=== PATIENT | female | born 1995 | race American Indian/Alaskan Native ===

== ENCOUNTER 2020-02-21 13:00 | Emergency (ER) | payer BC ==
--- NOTE | 2020-02-21 13:45 | EDM.PDOC ---
ED HPI GENERAL MEDICAL PROBLEM - General Chief Complaint: ENT Problem Stated Complaint: cough runny nose sore throat Time Seen by Provider: 02/21/20 13:40 Source of Information: Reports: Patient History Limitations: Reports: No Limitations - History of Present Illness INITIAL COMMENTS - FREE TEXT/NARRATIVE: Patient is here to get a covid swab and chest xray. She started getting sick on 02/11, 9 days ago, with fevers, cough, and loss of taste and smell. She has been getting better since that time. However, her family would like her to have a chest xray as someone they know went home from the ER then got worse and had to come back a few days later. She does not currently have shortness of breath or cough. Her taste and smell is back. Onset Date: 02/12/20 - Related Data Allergies Allergy/AdvReac Type Severity Reaction Status Date / Time No Known Allergies Allergy Verified 02/21/20 13:18 Home Meds: Home Meds . [No Known Home Meds] 02/21/20 [History] Past Medical History - Past Health History Medical/Surgical History: Denies Medical/Surgical History Social & Family History - Tobacco Use Tobacco Use Status *Q: Never Tobacco User - Recreational Drug Use Recreational Drug Use: No ED ROS GENERAL - Review of Systems Review Of Systems: Comprehensive ROS is negative, except as noted in HPI. ED EXAM, GENERAL - Physical Exam Exam: See Below Exam Limited By: No Limitations General Appearance: Alert, WD/WN, No Apparent Distress Eye Exam: Bilateral Eye: Normal Inspection Throat/Mouth: Normal Voice, No Airway Compromise Head: Atraumatic, Normocephalic Respiratory/Chest: No Respiratory Distress, Lungs Clear, Normal Breath Sounds, No Accessory Muscle Use, Chest Non-Tender Cardiovascular: Normal Peripheral Pulses, Regular Rate, Rhythm, No Murmur GI/Abdominal: Soft, Non-Tender Neurological: Alert, Oriented, Normal Cognition, Normal Gait Psychiatric: Normal Affect, Normal Mood Skin Exam: Warm, Dry, Intact, Normal Color, No Rash Lymphatic: No Adenopathy Course - Vital Signs Last Recorded V/S: Last Vital Signs Temp 97.9 F 02/21/20 13:13 Pulse 72 02/21/20 13:13 Resp 16 02/21/20 13:13 BP 119/62 02/21/20 13:13 Pulse Ox 100 02/21/20 13:13 - Orders/Labs/Meds Orders: Active Orders 24 hr Category Date Time Status CORONAVIRUS COVID-19 PCR PHL Stat Lab 02/21/20 13:40 Ordered - Re-Assessments/Exams Free Text/Narrative Re-Assessment/Exam: Explained to pt that she does not have any clinical indication for a cxr today. Reassured her that her symptoms were improving and she is to go home and quarantine while awaiting her PHL COVID swab to be resulted in a few days. 02/21/20 13:47 Departure - Departure Time of Disposition: 13:45 Disposition: Home, Self-Care 01 Condition: Good Clinical Impression: Respiration normal Upper respiratory infection Qualifiers: URI type: unspecified viral URI Qualified Code(s): J06.9 - Acute upper respiratory infection, unspecified - Discharge Information *PRESCRIPTION DRUG MONITORING PROGRAM REVIEWED*: Not Applicable *COPY OF PRESCRIPTION DRUG MONITORING REPORT IN PATIENT JUYL: Not Applicable Instructions: Cough, Adult, [id number] Additional Instructions: State COVID swab sent for testing If symptoms worsen, return to the ER Follow up with PCP in 3-5 days Sepsis Event Note (ED) - Evaluation Sepsis Screening Result: No Definite Risk - Focused Exam Vital Signs: Vital Signs Temp Pulse Resp BP Pulse Ox 02/21/20 13:13 97.9 F 72 16 119/62 100 - My Orders Last 24 Hours: My Active Orders 02/21/20 13:40 CORONAVIRUS COVID-19 PCR PHL Stat - Assessment/Plan Last 24 Hours: My Active Orders 02/21/20 13:40 CORONAVIRUS COVID-19 PCR PHL Stat
== END 2020-02-21 14:02 | disposition home or self-care (01) ==
LOC: DL.ED 13:00
DX: J06.9 Acute upper respiratory infection, unspecified (principal); Z20.828 Contact with and (suspected) exposure to other viral communicable diseases
CPT/HCPCS: 99282; 99283; U0002

== ENCOUNTER 2021-03-19 19:41 | Emergency (ER) | payer BC ==
--- NOTE | 2021-03-19 21:30 | EDM.PDOC ---
ED HPI GENERAL MEDICAL PROBLEM - General Chief Complaint: Fever Stated Complaint: FLU SYMPTOMS Time Seen by Provider: 03/19/21 21:27 Source of Information: Reports: Patient History Limitations: Reports: No Limitations - History of Present Illness INITIAL COMMENTS - FREE TEXT/NARRATIVE: 26 y/o F c/o [place] sore throat, chills since Saturday. Daughter is here with her with similar complaints. She denies fever, cough, cp, db, abd pn, back pain , recent trauma, ext pain, NVD, . - Related Data Allergies Allergy/AdvReac Type Severity Reaction Status Date / Time sulfamethoxazole Allergy Cannot Verified 03/19/21 20:57 [From Bactrim] Remember trimethoprim [From Bactrim] Allergy Cannot Verified 03/19/21 20:57 Remember Home Meds: Home Meds . [No Known Home Meds] 02/21/20 [History] Past Medical History - Past Health History Medical/Surgical History: Denies Medical/Surgical History Social & Family History - Tobacco Use Tobacco Use Status *Q: Never Tobacco User - Recreational Drug Use Recreational Drug Use: No ED ROS ENT - Review of Systems Review Of Systems: Comprehensive ROS is negative, except as noted in HPI. ED EXAM, ENT - Physical Exam Exam: See Below Exam Limited By: No Limitations General Appearance: Alert, No Apparent Distress Eye Exam: Bilateral Eye: PERRL Ears: Normal External Exam, Normal Canal, Hearing Grossly Normal, Normal TMs Nose: Normal Inspection, Normal Mucousa, No Blood Mouth/Throat: Normal Inspection, Normal Gums, Normal Lips, Normal Oropharynx, Normal Teeth Head: Atraumatic, Normocephalic Neck: Lymphadenopathy (L) Respiratory/Chest: No Respiratory Distress, Lungs Clear, Normal Breath Sounds, No Accessory Muscle Use, Chest Non-Tender Cardiovascular: Normal Peripheral Pulses, Regular Rate, Rhythm, No Edema, No Gallop, No JVD, No Murmur, No Rub GI/Abdominal: Normal Bowel Sounds, Soft, Non-Tender, No Organomegaly, No Distention, No Abnormal Bruit, No Mass (Female) Exam: Deferred Rectal (Female) Exam: Deferred Back: Normal Inspection, Full Range of Motion Extremities: Normal Inspection Neurological: Alert, Oriented, CN II-XII Intact, Normal Cognition, Normal Gait, Normal Reflexes, No Motor/Sensory Deficits Psychiatric: Normal Affect, Normal Mood Skin: Warm, Dry, Intact Course - Vital Signs Last Recorded V/S: Last Vital Signs Temp 98.5 F 03/19/21 20:31 Pulse Resp BP Pulse Ox - Orders/Labs/Meds Orders: Active Orders 24 hr Category Date Time Status COVID-19/FLU A+B [[facility]LEC] Stat Lab 03/19/21 20:10 Received - Re-Assessments/Exams Free Text/Narrative Re-Assessment/Exam: 03/19/21 21:30 The pt is covid positive, her daughter with her tested negative at this visit. I have discussed the labs and exams with her and informed her to isolate for 10 days from the onset of her symptoms. I have instructed her to use tylenol and motrin for pain as needed and to follow up with her pcp or return to the Er if her symptoms worsen. 03/19/21 21:34 Departure - Departure Time of Disposition: 21:31 Disposition: Home, Self-Care 01 Condition: Good Clinical Impression: COVID-19 - Discharge Information *PRESCRIPTION DRUG MONITORING PROGRAM REVIEWED*: Not Applicable *COPY OF PRESCRIPTION DRUG MONITORING REPORT IN PATIENT JULY: Not Applicable Instructions: 10 Things You Can Do to Manage Your COVID-19 Symptoms at Home - [facility] (11/11/2020) Forms: ED Department Discharge Additional Instructions: Use tylenol and Ibuprofen for pain as needed. Isolate for 10 days from the onset of your symtpoms. Your family needs to isolate as well since they have been exposed to the virus. If there is any change or worsening of your symptoms contact your primary care facility or return to the ER. Sepsis Event Note (ED) - Evaluation Sepsis Screening Result: No Definite Risk - Focused Exam Vital Signs: Vital Signs Temp 03/19/21 20:31 98.5 F - My Orders Last 24 Hours: My Active Orders 03/19/21 20:10 COVID-19/FLU A+B [[facility]LEC] Stat - Assessment/Plan Last 24 Hours: My Active Orders 03/19/21 20:10 COVID-19/FLU A+B [[facility]LE[facility]] Stat
[2021-03-19 21:38] LABS: CORONAVIRUS COVID-19 NAA POSITIVE (NEGATIVE)
== END 2021-03-19 21:42 | disposition home or self-care (01) ==
LOC: DL.ED 19:41
DX: U07.1 COVID-19 (principal); Z88.1 Allergy status to other antibiotic agents
CPT/HCPCS: 0240U; 99283